=== PATIENT | female | born 1955 | race Caucasian/White ===

== ENCOUNTER → 2017-04-20 | Outpatient (CLI) | payer BC, OTHER ==
[~2017-04-20] MED LIST: ALLERCLEAR10 MG PO; ASPIRIN LO-DOSE81 MG PO; CARAFATE1 GM PO; CRESTOR10 MG PO; CURCUMIN PO; EFFEXOR XR75 MG PO; VITAMIN D-32000 UNI1 PO; [UNRECOGNIZED DRUG - OTHER] PO
--- NOTE | ~2017-04-20 | ESTC ---
Cardiac Perfusion Imaging Demographics Patient Name JUDI Watt Gender Female Patient Number [id number] Race Visit Number [id number] Ethnicity Corporate ID Room Number Accession Number [id number] Height 60 inches Date of 1955 Weight 160 pounds Interpreting Chace Hassan Date of study 04/20/2017 Physician MD Supervising /TRACYP Dorothy Pierce APRN NM Technologist Angelo Mc Ordering Physician Chace Hassan Stress MD digital technician Stress ECG Reading Dorothy Pierce APRN Nurse Propp Bessy TALAMANTES Physician Procedure Procedure Type: Nuclear Stress Test:Exercise, Cardiolite Stress Test Procedure Start time: 04/20/2017 08:42 Indications: Chest pain and Dyspnea with exertion. Risk Factors The patient risk factors include:former tobacco use. Conclusions Impression EKG portion of exercise stress test is positive for ischemia by diagnostic criteria, 1.[address] depressions in leads V4-6 starting in stage 2 of Avni protocol. The Rachel Treadmill score was 0 .This corresponds to a moderate risk stress test. Myocardial perfusion imaging is mildly abnormal. The images reveal a reversible defect in the mid anterior wall consistent with ischemia . Overall left ventricular systolic function was normal. This is a intermediate risk stress test. There are no previous studies for comparison . Stress Protocols Resting ECG Normal sinus rhythm. Pre-stress physical exam: Patient assessed by Minoo PORTER prior to testing. Chest - CTA Cardio - RRR, S1, S2 Peak HR:150 bpm HR response: Appropriate Peak BP:182/80 mmHg BP response: Appropriate Predicted HR: 160 bpm HR/BP product:82792 % of predicted HR: 94 Reason for termination:Target heart rate ECG Findings ST depression of 0.9-1.5mm in leads II, aVF, V4, V5, V6. Arrhythmias No rhythm abnormality. Symptoms Shortness of breath. Complications Procedure complication: None. Stress Interpretation Patient walked for 7.5 minutes through 3 stages of AVNI protocol. Appropriate hemodynamic response to exercise. Significant ST-T wave changes with exercise. EKG portion is positive for ischemia by diagnostic criteria. The Rachel Treadmill score was 0 .This corresponds to a moderate risk stress test. Will correlate with nuclear images. Imaging Results Summed scores - Summed stress score: 5 - Summed rest score: 0 - Summed difference score: 5 Stress ejection Ejection fraction:69 % EDV :55 ml ESV :17 ml Stroke volume :38 ml LV mass :99 gr Imaging Protocols Rest Stress Isotope:Tc99m Sestamibi IV Isotope: Tc99m Sestamibi IV Isotope dose:12 mCi Isotope dose:37 mCi Date:04/20/2017 07:25 Date:04/20/2017 09:03 Technique: SPECT Technique: Gated Supine SPECT Supine Scan Time:45-60 minutes post Scan Time:45-60 minutes post injection injection Medical History Admission Data Admission date: 04/20/2017 Admission Time: 07:00 Hospital Status: Outpatient. Signatures dtt: MICHELLE JEAN dtd: 04/20/17 0842 Physician Self Edit
--- NOTE | ~2017-04-20 | ECHO ---
Transthoracic Echocardiography Report (TTE) Demographics Patient Name JAMIE LAU Date of Study 04/20/2017 Patient Number [id number] Visit Number [id number] Date of 1955 Room Number Gender Female Number Age 61 year(s) Referring Chace Hassan Plsql Developer [place] Howe RVT Physician Physician Interpreting Chace Hassan Professional Tutor Physician MD Supervising Ordering Chace Hassan MD/MLP Physician Nurse Stress Casino Shift Manager Conclusions Contractility Score Summary Normal Left Ventricular contractility was noted. Summary Normal LV/RV size and systolic function. The estimated left ventricular ejection fraction is 60-65%. Diastolic assessment reveals normal relaxation. No significant valvular abnormalities. Procedure Type of Study TTE procedure:2D Echocardiogram. Procedure Date Date: 04/20/2017 Start: 09:18 AM Study Location: Echo Lab Technical Quality: Adequate visualization Indications:Chest pain. Appropriate Use Criteria: 9 Patient Status: Routine HR: 64 bpm BP: 147/87 mmHg M-Mode/2D Measurements LV Diastolic Dimension: 3.62 cm LV Systolic Dimension: 2.17 cm LV Septum Diastolic: 1.08 cm LV PW Diastolic: 1.27 cm AO Root Dimension: 2.4 cm Cardiac Output: 3.84 l/min LA Dimension: 2.6 cm LVOT: 1.9 cm LVOT VTI: 21.2 cm RV Base: 1.91 cm LV Stroke volume: 60.08 ml RV Length: 5.43 cm TAPSE: 1.61 cm TDI-S': 13.3 cm/s Doppler Measurements AV Peak Velocity: 1.16 m/s MV Peak E-Wave: 1.15 m/s AV Peak Gradient: 5.38 mmHg MV Peak A-Wave: 0.96 m/s AV Mean Gradient: 3 mmHg MV E/A Ratio: 1.2 LVOT Peak Velocity: 1.09 m/s MV P1/2t: 61 msec PV Peak Velocity: 0.84 m/s E' Septal Velocity: 0.09 m/s PV Peak Gradient: 2.79 mmHg E' Lateral Velocity: 0.11 m/s A' Septal Velocity: 0.08 m/s A' Lateral Velocity: 0.07 m/s Findings Left Ventricle Diastolic assessment reveals normal relaxation. Right Ventricle Normal right ventricle structure and function. Left Atrium Normal left atrial size. Right Atrium Normal right atrial size. IVC measures 1.45 cm with inspiratory collapse. Mitral Valve Trivial mitral regurgitation by color Doppler. Aortic Valve The aortic valve was not well imaged. The aortic valve is mildly sclerotic. Tricuspid Valve Normal tricuspid valve structure and function. Pulmonic Valve Normal pulmonic valve structure and function. Pericardial Effusion Epicardial fat pad noted. Trivial pericardial effusion. Miscellaneous Visualized portions of the aortic root and ascending aorta appear normal in size. Pleural Effusion No evidence of pleural effusion. Contractility Score LV regional wall motion:(0-Non visualized 1-Normal 2-Hypokinesis 3-Akinesis 4-Dyskinesis 5-Aneurysm) Signature dtt: MICHELLE JEAN dtd: 04/20/17 0918 Physician Self Edit
== END | disposition disaster alternative care site (69) ==
LOC: GRAD 07:00
DX: R07.9 Chest pain, unspecified (principal); R06.09 Other forms of dyspnea; I25.9 Chronic ischemic heart disease, unspecified
CPT/HCPCS: A9500

== ENCOUNTER 2017-05-05 07:10 | Outpatient (CLI) | payer BC ==
[~2017-05-05] VITALS: Ht 152.4 cm; Wt 69.0 kg
--- NOTE | ~2017-05-05 | CATH ---
Cardiac Diagnostic Report Demographics Patient Name JUDI Watt Gender Female Date of 1955 Age 61 year(s) Patient Number [id number] Date of Study 05/05/2017 Visit Number [id number] Room Number [id number] Corporate ID Ht 152.4 cm Wt 69 kg Referring Reji John Richardson MD Primary Physician Physician Performing [facility] Secondary Physician Physician Sonya ALVAREZ Diagnostic [facility] [place] Assisting Physician Physician Sonya ALVAREZ Interventional Physician Composite Worker Physician Findings and Conclusions Diagnostic Findings and Conclusion Mild non obstructive CAD. Mid LAD 30% focal lesion and proximal RCA 20% tubular lesion. Diagnostic Recommendations Medical therapy-Aspirin 81mg daily and Crestor 5mg daily HS LDL goal is <70ml/dl Hydration and followup creatinine. Patient has been instructed to not lift anything more than 5 pounds for 1 week. Aggressive risk factor management. Aggressive medical therapy for coronary artery disease. Optimization of medical therapy as an outpatient. Procedure Description The patient was brought to the diagnostic cardiac catheterization-EP laboratory in the fasting, non-sedated state. Informed consent was obtained in the written and verbal form after the risks and benefits were explained. The patient had no further questions and agreed to proceed. The planned puncture-incision site(s) were shaved and prepped with ChloraPrep and draped in the usual sterile manner. Conscious sedation, supplemental oxygen, and pain control medications were delivered by a registered nurse under physician guidance. Surface ECG rhythm, blood pressure measurement, and pulse oximetry were monitored throughout the procedure. Arterial access. The access site was infiltrated with lidocaine. The vessel was entered with the Seldinger technique. A sheath was advanced into the vessel and used for catheter placement. Selective left coronary angiography. A catheter was advanced into the left coronary vessel ostium under Fluoroscopic guidance. Contrast was injected by hand. Images were obtained in multiple projections. Selective right coronary angiography. A catheter was advanced into the right coronary vessel ostium under fluoroscopic guidance. Contrast was injected by hand. Images were obtained in multiple projections. Arterial artery hemostasis was achieved. The patient was transferred to a regular nursing floor via cart accompanied by a nurse. The patient left the laboratory in stable condition. Diagnostic Cath Status: Elective Procedure Procedure Type Diagnostic procedure:Angiography:, Coronary Angios Indications: Unstable angina, Shortness of breath and Abnormal Stress Test. The procedure was explained in detail to the patient. Risks, complications and alternative treatments were reviewed. Written consent was obtained. Medications Reviewed with Patient prior to Procedure. Angiographic Findings Dominance: Right Cardiac Arteries and Lesion Findings LMCA: Normal (0% Stenosis).Normal LAD: Lesion on Mid LAD: Mid subsection.30% stenosis .Chronic total occlusion. LCx: Normal (0% Stenosis), Abnormal and Aneurysmal.Circ and OM normal RCA: Lesion on Prox RCA: Proximal subsection.20% stenosis . Coronary Tree Procedure Data Procedure Date Date: 05/05/2017Start: 10:42 AMEnd: 10:56 AM Entry Locations - Percutaneous access was performed through the Right Radial artery (Primary location). A 6 Fr sheath was inserted. Unsuccessful closure attempt was performed using: an R band. Hemostasis was successfully obtained using Mechanical Compression. Closure Comments: R) band applied, 11ml of air in band. Applied by Shaina. Procedure Medications Order and Administration + + + +-------+ !Time !Medication !Dosage !Route ! + + + +-------+ !05/05/2017 10:38 AM !Versed !1 mg !I.V. ! + + + +-------+ !05/05/2017 10:40 AM !Fentanyl !25 mcg !I.V. ! + + + +-------+ !05/05/2017 10:44 AM !Radial Nitroglycerin !200 mcg !I.A. ! + + + +-------+ !05/05/2017 10:46 AM !Heparin (ACC_3) !5000 units !I.V. ! + + + +-------+ !05/05/2017 10:46 AM !Versed !1 mg !I.V. ! + + + +-------+ !05/05/2017 10:48 AM !Fentanyl !25 mcg !I.V. ! + + + +-------+ Devices Used - A5 Fr. BS JR 4 Diag. Catheterwas used for:Right coronary angiography. - A5 Fr. BS JL 3.5 Diag. Catheterwas used for:Left coronary angiography. Contrast Material - Isovue 43937 ml Fluoroscopy Time: Diagnostic: 1:36 minutes. Total: 1:36 minutes. Fluoroscopy Dose: Diagnostic: 333 mGy. Total: 333 mGy. Estimated Blood Loss: 10 ml. Medical History Performed Procedures and Imaging Results - Stress testing with SPECT MPIwas performed. Allergies - No known allergies. Risk Factors The patient risk factors include:last creatinine: 0.7 mg/dl, creatinine clearance: 93.1 ml/min and former tobacco use ( years not smokin). Admission Data Admission Date: 05/05/2017 Admission Time: 07:10 AM Admit Source: Other Insurance Payors: Private health insurance. Clinical Evaluation Leading to Procedure - The patient's CAD presentation was assessed as: Unstable angina. - The patient's anginal syndrome during the past two weeks was assessed as: Class III according to the [place] Cardiovascular Society Classification System (CCS). Anti-anginal medications were prescribed during the past two weeks. The medications are: Long Acting Nitrates and Ranolazine. Hemodynamics Condition: Rest O2 Consumption: Estimated: 150.26Heart Rate: 59 bpm Pressures (mmHg) +-----+ + !Site !Pressure ! +-----+ + !AO !162/96 (125) ! +-----+ + Shunts Oxygen Values O2 Capacity 165.92 O2 Consumption 150.26 Discharge Data Discharge Date: 05/05/2017 Hospital Status: Outpatient Signatures dtt: SONYA JEAN dtd: 05/05/17 1042 Physician Self Edit
[~2017-05-05 07:10] MED LIST changes: -ASPIRIN LO-DOSE81 MG PO; -CRESTOR10 MG PO
[2017-05-05 07:47] LABS: BASOPHIL # 0.1 K/uL (0.0-0.2); BASOPHIL % 1.1 %; EOSINOPHIL # 0.2 K/uL (0.0-0.5); EOSINOPHIL % 3.2 %; HEMATOCRIT 37.2 % (33.0-46.0); HEMOGLOBIN 12.2 g/dL (10.0-15.0); IMMATURE GRANULOCYTE % 0.4 %; LYMPHOCYTE # 1.6 K/uL (0.8-4.0); LYMPHOCYTE % 29.4 %; MCH 29.5 pg (27.0-34.0); MCHC 32.8 gm/dL (32.0-36.5); MCV 89.9 fl (83.0-98.0); MONOCYTE # 0.6 K/uL (0.0-1.0); MONOCYTE % 11.5 %; MPV 10.4 fl (9.4-12.4); NEUTROPHIL % 54.4 %; NRBC % 0 /100WBC (0-0.00); PLATELET COUNT 238 K/uL (150-450); RBC 4.14 M/uL (3.50-5.50); RDW-CV 14.1 % (11.9-14.6); WBC 5.6 K/uL (4.0-11.0)
[2017-05-05 08:00] LABS: INR - (THERAPEUTIC) 1.02 (0.92-1.07); PROTIME 10.7 SECONDS (9.8-11.4)
[2017-05-05 08:02] LABS: ALBUMIN 3.7 gm/dL (3.5-5.0); ALK PHOS 35 IU/L (33-138); ALT 25 IU/L (12-78); ANION GAP 10.3 (10.0-19.0); AST 19 IU/L (10-40); BLOOD UREA NITROGEN 11 mg/dL (6-24); CALCIUM 8.4 mg/dL (8.5-10.5); CHLORIDE 110 mMol/L (96-110); CO2 25 mMol/L (22-32); CREATININE 0.7 mg/dL (0.5-1.1); POTASSIUM 4.3 mMol/L (3.7-5.1); SODIUM 141 mMol/L (135-145); TOTAL BILIRUBIN 0.4 mg/dL (0.0-1.5); TOTAL PROTEIN 7.4 g/dL (6.0-8.4)
[2017-05-05] MEDS ORDERED: CRESTOR10 MG PO (11:38)
[2017-05-05] MEDS ORDERED: ASPIRIN LO-DOSE81 MG PO (11:39)
== END 2017-05-05 14:25 | disposition disaster alternative care site (69) ==
LOC: GPCU 07:10 → GPOC 07:10
PROVIDERS: Internal Medicine Interventional Cardiology
PROC: 4A023N7 Measurement of Cardiac Sampling and Pressure, Left Heart, Percutaneous Approach (ICD-10-PCS; principal; 2017-05-05)
PROC: B216YZZ Fluoroscopy of Right and Left Heart using Other Contrast (ICD-10-PCS; 2017-05-05)
DX: I25.110 Atherosclerotic heart disease of native coronary artery with unstable angina pectoris (principal); R00.1 Bradycardia, unspecified
CPT/HCPCS: J0360; J0461; J1644; J2001; J2250; J2370; J3010; J7030